=== PATIENT | male | born 1975 | race Hispanic/Latino ===

== ENCOUNTER 2017-07-22 00:20 | Emergency (ER) | payer OTHER ==
[2017-07-22] MEDS: dexameTHASONE 20 MG/5 ML VIAL (J1100) IV (04:46)
[2017-07-22] MEDS: INDOMETHACIN 25 MG CAP PO (04:52)
== END 2017-07-22 05:11 | disposition home or self-care (01) ==
LOC: M ED 00:20
DX: M13.141 Monoarthritis, not elsewhere classified, right hand (principal); F17.200 Nicotine dependence, unspecified, uncomplicated; Z79.899 Other long term (current) drug therapy
CPT/HCPCS: J1100

== ENCOUNTER 2018-07-19 22:01 | Emergency (ER) | payer OTHER ==
[~2018-07-19] VITALS: Ht 208.3 cm; Wt 10.3 kg
[~2018-07-19 22:01] MED LIST: HYDR-643 PO; INDO25SU PO; PRED20TA PO
[2018-07-19] MEDS ORDERED: ASPIRIN 81 MG CHEW TABLET PO ONE (22:30)
[2018-07-19 22:48] LABS: BASO # 0.1 10^3/uL (0.0-0.2); BASO % 0.5 % (0.0-1.0); EOS # 0.6 10^3/uL (0.0-0.50); EOS % 5.3 % (0.0-3.0); HEMOGLOBIN 16.4 g/dl (13.5-17.5); LYMPH # 3.6 10^3/uL (1.5-4.5); LYMPH % 34.1 % (24.0-44.0); MEAN CORPUSCULAR HEMOGLOBIN 30.1 pg (27.0-33.0); MEAN CORPUSCULAR HGB CONC 34.2 g/dl (32.0-36.5); MEAN CORPUSCULAR VOLUME 88.1 fl (80.0-96.0); MONO # 0.7 10^3/uL (0.0-0.8); MONO % 6.6 % (0.0-5.0); NEUTROPHILS # 5.7 10^3/uL (1.8-7.7); NEUTROPHILS % 53.2 % (36.0-66.0); PLATELET COUNT, AUTOMATED 247 10^3/uL (150-450); RED BLOOD COUNT 5.45 10^6/uL (4.30-6.10); WHITE BLOOD COUNT 10.7 10^3/uL (4.0-10.0)
[2018-07-19 23:15] LABS: INR 0.86; PROTHROMBIN TIME 11.8 SECONDS (12.1-14.4)
[2018-07-19 23:16] LABS: PARTIAL THROMBOPLASTIN TIME 29.2 SECONDS (25.4-37.6)
[2018-07-19 23:50] LABS: ALBUMIN 3.6 GM/DL (3.2-5.2); ALT/SGPT 113 U/L (12-78); BILIRUBIN,DIRECT < 0.1 MG/DL (0.0-0.2); BILIRUBIN,TOTAL 0.3 MG/DL (0.2-1.0); BLOOD UREA NITROGEN 15 MG/DL (7-18); CALCIUM LEVEL 9.1 MG/DL (8.5-10.1); CARBON DIOXIDE LEVEL 31 MEQ/L (21-32); CHLORIDE LEVEL 106 MEQ/L (98-107); CPK CREATINE PHOSPHOKINASE 269 U/L (39-308); CREATININE FOR GFR 1.05 MG/DL (0.70-1.30); FREE T4 0.82 NG/DL (0.76-1.46); GLOMERULAR FILTRATION RATE > 60.0 (>60); GLUCOSE, FASTING 102 MG/DL (70-100); LIPASE 207 U/L (73-393); MB/CK RELATIVE INDEX 1.15 (< OR =4); POTASSIUM SERUM 4.2 MEQ/L (3.5-5.1); SODIUM LEVEL 144 MEQ/L (136-145); TOTAL PROTEIN 7.3 GM/DL (6.4-8.2); TROPONIN I < 0.02 NG/ML (< 0.10)
[2018-07-20 03:45] LABS: CPK CREATINE PHOSPHOKINASE 213 U/L (39-308); MB/CK RELATIVE INDEX 1.31 (< OR =4); TROPONIN I < 0.02 NG/ML (< 0.10)
[2018-07-20 04:45] VITALS: BP 95/62
--- NOTE | 2018-07-20 06:03 | ECGEPIP ---
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
--- NOTE | 2018-07-20 08:25 | REP ---
Chest x-ray: Two views. History: Chest pain. Findings: EKG monitoring electrodes overlie the chest. Lungs are well inflated and clear. Pleural angles are sharp. Heart size is normal. No bony abnormalities seen. Impression: No acute disease. Electronically Signed by Abel Villavicencio MD 07/20/2018 08:17 A
--- NOTE | 2018-07-20 17:10 | ECGEPIP ---
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
== END 2018-07-20 05:15 | disposition home or self-care (01) ==
LOC: M ED 22:01
DX: R07.89 Other chest pain (principal); R94.31 Abnormal electrocardiogram [ECG] [EKG]; E78.5 Hyperlipidemia, unspecified; F17.210 Nicotine dependence, cigarettes, uncomplicated